=== PATIENT | female | born 1975 | race Caucasian/White ===

== ENCOUNTER 2017-05-12 17:16 | Emergency (ER) | payer OTHER ==
[~2017-05-12] VITALS: Ht 162.5 cm; Wt 117.9 kg
[2017-05-12] MEDS ORDERED: LISINOPRIL20 MG PO (17:50)
[2017-05-12] MEDS ORDERED: HYDROCHLOROTHIA25 M1 PO (17:51)
[2017-05-12] MEDS ORDERED: ADVAIR 250/501 EA INH (17:51)
[2017-05-12] MEDS ORDERED: DOXYCYCLINE100 M3 PO (20:00)
== END 2017-05-12 20:07 | disposition home or self-care (01) ==
LOC: ED 17:16
DX: J32.8 Other chronic sinusitis (principal); J45.909 Unspecified asthma, uncomplicated; I10 Essential (primary) hypertension; Z79.899 Other long term (current) drug therapy; Z88.1 Allergy status to other antibiotic agents

== ENCOUNTER 2018-07-27 15:29 | Emergency (ER) | payer OTHER ==
[~2018-07-27] VITALS: Ht 162.5 cm; Wt 117.9 kg
[~2018-07-27 15:29] MED LIST: ADVAIR 250/501 EA INH; DOXYCYCLINE100 M3 PO; HYDROCHLOROTHIA25 M1 PO; LISINOPRIL20 MG PO
[2018-07-27] MEDS ORDERED: PREDNISONE50 MG PO (18:06)
[2018-07-27] MEDS ORDERED: ZITHROMAX250 MG PO (18:06)
== END 2018-07-27 18:49 | disposition home or self-care (01) ==
LOC: ED 15:29
DX: J18.9 Pneumonia, unspecified organism (principal); Z88.1 Allergy status to other antibiotic agents; Z79.899 Other long term (current) drug therapy

== ENCOUNTER → 2018-09-07 | Outpatient (CLI) | payer OTHER ==
[~2018-09-07] MED LIST changes: +PREDNISONE50 MG PO; +ZITHROMAX250 MG PO
== END | disposition home or self-care (01) ==
LOC: RAD 11:07
DX: R91.8 Other nonspecific abnormal finding of lung field (principal)

== ENCOUNTER 2019-02-17 18:07 | Inpatient (IN) | payer OTHER ==
[~2019-02-17] VITALS: Ht 162.5 cm; Wt 122.6 kg
[2019-02-17] MEDS ORDERED: OMEPRAZOLE MAGN20 MG PO (18:10)
[2019-02-17] MEDS ORDERED: PRAVASTATIN SOD20 MG PO (18:10)
[2019-02-17 18:11] VITALS: BP 166/102
[2019-02-17] MEDS ORDERED: MONTELUKAST SOD10 MG PO (18:11)
[2019-02-17] MEDS ORDERED: VITAMIN D350000 UNIT PO (18:11)
[2019-02-17] MEDS ORDERED: BREO ELLIPTA 21 EACH INH (18:11)
[2019-02-17 18:56] VITALS: BP 136/94
[2019-02-17 21:32] LABS: BASO # 0.1 10*3/uL (0.0-0.1); BASO % 0.4 % (0.0-1.0); EOS # 0.2 10*3/uL (0.0-0.4); EOS % 0.8 % (1.0-4.0); HEMATOCRIT 43.2 % (37.0-47.0); HEMOGLOBIN 13.7 g/dl (12.0-16.0); LYMPH % 9.4 % (27.0-41.0); MEAN CELL VOLUME 83.1 fl (81.0-99.0); MEAN CORPUSCULAR HGB 26.3 pg (27.0-31.0); MEAN CORPUSCULAR HGB CONC 31.7 g/dl (33.0-37.0); MEAN PLATELET VOLUME 10.8 fl (9.6-12.3); MONO # 0.6 10*3/uL (0.1-1.0); MONO % 2.8 % (3.0-9.0); NEUT # 17.9 10*3/uL (2.3-7.9); PLATELET COUNT AUTOMATED 400 10*3/uL (130-400); RED CELL DISTRI WIDTH 15.1 % (0-14.5); WHITE BLOOD COUNT 20.8 10*3/uL (4.8-10.8)
[2019-02-17 21:47] LABS: ALBUMIN 3.8 gm/dl (3.1-4.5); ALKALINE PHOSPHATASE 105 U/L (45-117); BUN 17 mg/dl (7-24); CHLORIDE 105 mmol/L (98-107); CREATININE 0.87 mg/dL (0.55-1.02); POTASSIUM 3.8 mmol/L (3.5-5.1); SGOT/AST 18 IU/L (3-35); SGPT/ALT 27 U/L (12-78); SODIUM 140 mmol/L (136-145); TOTAL PROTEIN 8.2 gm/dL (6.4-8.2)
[2019-02-17 23:00] VITALS: BP 128/72
[2019-02-18] VITALS: BP 128/72
[2019-02-18 08:30] VITALS: BP 150/95
[2019-02-18 09:56] VITALS: BP 149/77
[2019-02-18 15:47] VITALS: BP 138/90
== END 2019-02-18 18:55 | disposition home or self-care (01) | DRG 254 ==
LOC: ED 18:07 → EDHOLD 21:56 → 5E 22:25
PROVIDERS: Nurse Practitioner Family; ADMIT Internal Medicine
DX: T18.128A Food in esophagus causing other injury, initial encounter (principal); R65.10 Systemic inflammatory response syndrome (SIRS) of non-infectious origin without acute organ dysfunction; J32.9 Chronic sinusitis, unspecified; J18.9 Pneumonia, unspecified organism; K22.2 Esophageal obstruction; I10 Essential (primary) hypertension; J45.909 Unspecified asthma, uncomplicated; K21.9 Gastro-esophageal reflux disease without esophagitis; X58.XXXA Exposure to other specified factors, initial encounter; Y93.89 Activity, other specified; Y92.89 Other specified places as the place of occurrence of the external cause; Y99.8 Other external cause status; Z82.49 Family history of ischemic heart disease and other diseases of the circulatory system; Z88.1 Allergy status to other antibiotic agents; Z79.899 Other long term (current) drug therapy

== ENCOUNTER → 2019-02-27 | Outpatient (CLI) | payer OTHER ==
[~2019-02-27] MED LIST changes: +BREO ELLIPTA 21 EACH INH; +MONTELUKAST SOD10 MG PO; +OMEPRAZOLE MAGN20 MG PO; +PRAVASTATIN SOD20 MG PO; +VITAMIN D350000 UNIT PO
--- NOTE | 2019-02-27 10:38 | NUR ---
SPEECH PATHOLOGY Outpatient MBS completed as per orders. Patient reported having a hard time getting foods down. She stated that at times, food seems to go down very slowly. She was recently admitted to the hospital after a choking episode with pizza, where it became lodged in her throat. Medical history is significant for thyroid problems, GERD, HTN. She consumes a regular diet and thin liquid. Oral exam revealed presence of bottom teeth only. Lingual/labial and buccal skills were WNL in terms of strength, ROM and coordination. Patient was assessed with solid food (cookie and sandwich) and thin liquid by cup. Oral and pharyngeal swallowing skills were WNL across all consistencies. Recommend patient remain on present diet with use of strategies including small bites/sips, chewing thoroughly and following reflux precautions. No follow up treatment is warranted. She verbalized understanding of information provided. Patient is also scheduled with a art gallery internship. Dictated report to follow. Thank you for this referral. TAMARA TOMLINSON MSCCC-DRY KIL[employer] OPERATOR HELPER
== END | disposition home or self-care (01) ==
LOC: RAD/SH 09:46
DX: R13.10 Dysphagia, unspecified (principal); K80.20 Calculus of gallbladder without cholecystitis without obstruction

== ENCOUNTER → 2019-03-15 | Outpatient (CLI) | payer OTHER | END | disposition home or self-care (01) | LOC: US 01:01 | DX: K76.0 Fatty (change of) liver, not elsewhere classified (principal); K80.11 Calculus of gallbladder with chronic cholecystitis with obstruction; I10 Essential (primary) hypertension; E78.5 Hyperlipidemia, unspecified ==

== ENCOUNTER → 2019-04-18 | Outpatient (CLI) | payer OTHER | END | disposition home or self-care (01) | LOC: NM 04-05 07:00 | DX: K80.20 Calculus of gallbladder without cholecystitis without obstruction (principal) ==

== ENCOUNTER 2021-08-03 14:54 | Emergency (ER) | payer OTHER ==
[2021-08-03] MEDS ORDERED: PANTOPRAZOLE SO20 MG PO (17:14)
[2021-08-03] MEDS ORDERED: PEPCID20 MG PO (17:14)
== END 2021-08-03 17:35 | disposition home or self-care (01) ==
LOC: ED 14:54
DX: K21.9 Gastro-esophageal reflux disease without esophagitis (principal); Z88.1 Allergy status to other antibiotic agents; Z79.899 Other long term (current) drug therapy